=== PATIENT | male | born 2000 | race African-American/Black ===

== ENCOUNTER 2025-07-10 12:03 | Emergency (ER) | payer OTHER ==
[~2025-07-10] VITALS: Ht 182.9 cm; Wt 96.6 kg
[2025-07-10 13:35] VITALS: BP 144/73; TEMP 98; O2SAT 100
== END 2025-07-10 13:42 | disposition home or self-care (01) ==
LOC: M ED 12:03
DX: S01.421A Laceration with foreign body of right cheek and temporomandibular area, initial encounter (principal); W22.8XXA Striking against or struck by other objects, initial encounter; Y92.009 Unspecified place in unspecified non-institutional (private) residence as the place of occurrence of the external cause; Y93.9 Activity, unspecified; Y99.9 Unspecified external cause status